=== PATIENT | male | born 2000 | race Caucasian/White ===

== ENCOUNTER 2022-04-26 14:34 | Observation (INO) | payer OTHER, SELFPAY ==
--- NOTE | ~2022-04-26 | CT_ITS ---
EXAMINATION: CT abdomen pelvis w con DATE: 04/26/2022 17:17 INDICATION: Right lower quadrant pain TECHNIQUE: Computed tomography (CT) of the abdomen and pelvis was performed with 100 cc Omnipaque 350 intravenous contrast. The dose-length product was 536.63 mGy-cm. Automated exposure control and iter ative reconstruction technique were employed. COMPARISON: None. FINDINGS: There is a thickened 12 mm enhancing appendix with mild surrounding inflammation, compatibl e with acute uncomplicated appendicitis. No evidence for perforation or abscess. No free air. Lung bases are unremarkable. No significant pleural or pericardial effusion. Heart size is normal. Th e liver, spleen, pancreas, adrenal glands and kidneys are unremarkable. Gallbladder is present. Nonob structive bowel pattern. No significant vascular abnormality. No lymphadenopathy. No acute bone or syeda int abnormality. No lytic or blastic lesions. IMPRESSION: 1. Acute uncomplicated appendicitis. Reviewed, dictated and finalized at location A. [employer] PERSON
[2022-04-26 14:54] VITALS: BP 148/85; PULSE 63; RESP 16; TEMP 36.9; O2SAT 100
--- NOTE | 2022-04-26 16:55 | ED.ABDPAIN ---
HPI - Abdominal Pain General Chief Complaint: Abdominal Pain Stated Complaint: appy R/O from UC Time Seen by Provider: 04/26/22 16:32 History of Present Illness HPI narrative: 21-year-old male presents to the emergency room for evaluation of right lower abdominal pain. Stating began last night and was accompanied with multiple episodes of vomiting. Denies diarrhea or constipation. Denies fever. Denies radiating pain. States pain is worse when rotating his torso. Related Data Home Medications Medication Instructions Recorded Confirmed No Home Medications 04/26/22 04/26/22 Allergies Allergy/AdvReac Type Severity Reaction Status Date / Time No Known Allergies Allergy Verified 04/26/22 14:57 Review of Systems Review of Systems: CONSTITUTIONAL: Denies fever, chills, or sweats. EYES: Denies visual changes, redness, or discharge. ENT: Denies rhinorrhea, congestion, sore throat, or otalgia. CARDIOVASCULAR: Denies chest pain, palpitations, or edema. RESPIRATORY: Denies cough or dyspnea. GASTROINTESTINAL: Reports right lower quadrant abdominal pain, nausea GENITOURINARY: Denies dysuria or hematuria. SKIN: Denies rash or itching. MUSCULOSKELETAL: Denies back pain, joint pain, or myalgia. NEUROLOGIC: Denies headache, numbness, dizziness, or weakness. PSYCHIATRIC: Denies anxiety or depression. Exam Narrative: GENERAL: Well-appearing, well-nourished, no physical limitations, and in no acute distress. HEAD: Normocephalic, atraumatic. EYES: Conjunctivae normal, PERRLA and EOMI. CHEST: Clear to auscultation. No respiratory distress. No wheezes rales or rhonchi. HEART: Regular rate and rhythm. No murmur heard. Normal peripheral pulses. ABDOMEN: Soft, RLQ tenderness, nondistended, normal active bowel sounds. Negative heel strike. Negative psoas and obturator signs. BACK: No CVA tenderness EXTREMITIES: Normal range of motion. No edema. No clubbing or cyanosis SKIN: Warm, dry, no rash. No noted wounds NEURO: No focal deficits. Alert and oriented x3. MAEW. CN's II-XI intact bilaterally, normal gait PSYCH: Cooperative. Normal mood and affect. Course Vital Signs Vital signs: Vital Signs Temperature 36.9 C 04/26/22 14:54 Pulse Rate 63 04/26/22 14:54 Respiratory Rate 16 04/26/22 14:54 Blood Pressure 148/85 H 04/26/22 14:54 Pulse Oximetry 100 04/26/22 14:54 Temperature 36.9 C 04/26/22 14:54 Pulse Rate 63 04/26/22 14:54 Respiratory Rate 16 04/26/22 14:54 Blood Pressure 148/85 H 04/26/22 14:54 Pulse Oximetry 100 04/26/22 14:54 MDM - Abdominal Pain Lab Data 04/26/22 17:02 04/26/22 17:04 Labs: Lab Results 04/26/22 04/26/22 04/26/22 Range/Units 16:54 17:02 17:02 WBC 8.9 (4.5-10.0) K/mm3 RBC 4.85 (4.6-6.20) M/mm3 Hgb 15.7 (14.0-18.0) g/dL Hct 44.9 (42.0-52.0) % MCV 92.6 (80-100) fl MCH 32.4 (26-34) pg MCHC 35.0 (32-36) g/dl RDW 11.9 (11.5-14.5) % Plt Count 224 (150-375) k/mm3 MPV 10.4 (7.4-10.4) fl Immature Gran % (Auto) 0.2 (0-0.5) % Neut % (Auto) 62.4 (45.5-73.1) % Lymph % (Auto) 24.2 (18.3-44.2) % Clark % (Auto) 11.1 H (2.6-8.5) % Eos % (Auto) 1.7 (0-4.4) % Baso % (Auto) 0.4 (0.2-1.2) % Lymph # (Auto) 2.15 (0.9-3.2) K/mm3 Clark # (Auto) 1.0 H (0.1-0.6) K/mm3 Eos # (Auto) 0.2 (0-0.3) K/mm3 Baso # (Auto) 0.0 (0.0-0.1) K/mm3 Abs Immat Gran (auto) 0.02 (0.00-0.031) K/mm3 Absolute Neuts (auto) 5.6 (1.3-6.7) K/mm3 Absolute Nucleated RBC 0.0 (0.0-0.012) K/mm3 Nucleated RBC % 0.0 (0.0-0.2) % Sodium 138 (137-145) mmol/L Potassium 4.0 (3.4-5.0) mmol/L Chloride 98 (98-107) mmol/L Carbon Dioxide 34 H (22-30) mmol/L Anion Gap 6 L (8-16) mmol/L BUN 8 L (9-20) mg/dL Creatinine 0.80 (0.7-1.3) mg/dL Estim Creat Clear Calc 140 ml/min Estimated GFR > 60 (59 - ) Glucose 89 (65-110) mg/dL Calcium
[2022-04-26 17:06] LABS: Estimated CRCL calculation 125 ml/min; Estimated Glomerular Filt Rate > 60
[2022-04-26 17:10] LABS: Basophils Percent Auto 0.4 % (0.2-1.2); Eosinophils Absolute Auto 0.2 K/mm3 (0-0.3); Eosinophils Percent Auto 1.7 % (0-4.4); Hematocrit 44.9 % (42.0-52.0); Hemoglobin 15.7 g/dL (14.0-18.0); Immature Granulocyte Absolute 0.02 K/mm3 (0.00-0.031); Immature Granulocyte Percent A 0.2 % (0-0.5); Lymphocytes Absolute Auto 2.15 K/mm3 (0.9-3.2); Lymphocytes Percent Auto 24.2 % (18.3-44.2); Mean Corpuscular Hemoglobin 32.4 pg (26-34); Mean Corpuscular Volume 92.6 fl (80-100); Mean Platelet Volume 10.4 fl (7.4-10.4); Monocytes Percent Auto 11.1 % (2.6-8.5); Neutrophils Absolute Auto 5.6 K/mm3 (1.3-6.7); Neutrophils Percent Auto 62.4 % (45.5-73.1); Platelet Count Result 224 k/mm3 (150-375); Red Blood Count 4.85 M/mm3 (4.6-6.20); Red Cell Distribution Width 11.9 % (11.5-14.5); White Blood Count 8.9 K/mm3 (4.5-10.0)
[2022-04-26 17:17] LABS: Appearance Urine Clear (Clear); Bilirubin Urine Negative (Negative); Blood Urine Negative (Negative); Color Urine Yellow (Yellow); Glucose Urine UA Negative (Negative); Ketones Urine Negative (Negative); Leukocyte Esterase Ur Negative LEU/UL (Negative); Nitrate Urine Negative (Negative); Protein Urine Negative (Negative); Urobilinogen Urine 0.2 mg/dL (<2.0)
[2022-04-26 17:18] LABS: Add Urine Microscopic? NO
[2022-04-26 17:20] LABS: Alanine Aminotransferase 24 U/L (6-50); Albumin Level 4.9 g/dL (3.5-5.1); Alkaline Phosphatase 73 U/L (38-126); Anion Gap 6 mmol/L (8-16); Aspartate Amino Transferase 29 U/L (17-59); Bilirubin,Total 0.8 mg/dL (0.2-1.3); Blood Urea Nitrogen 8 mg/dL (9-20); Calcium 9.1 mg/dL (8.4-10.2); Carbon Dioxide 34 mmol/L (22-30); Chloride 98 mmol/L (98-107); Estimated CRCL calculation 140 ml/min; Estimated Glomerular Filt Rate > 60; Glucose 89 mg/dL (65-110); Lipase 55 U/L (23-300); Sodium 138 mmol/L (137-145)
[2022-04-26 18:31] VITALS: BP 128/77; PULSE 68; RESP 18; O2SAT 99
[2022-04-26] MEDS: SODIUM CHLORIDE 0.9% IV 1,000 ML 125 ML IV CONT (19:05)
[2022-04-26 19:30] VITALS: BP 124/70; PULSE 70; RESP 16; TEMP 36.8; O2SAT 100
--- NOTE | 2022-04-26 19:52 | PC.NURSE ---
spoke with Dr. Pastor and states pt can eat but NPO after midnight
[2022-04-26 20:24] LABS: Influenza A QL RT-PCR Negative (Negative); Influenza B QL RT-PCR Negative (Negative); SARS-CoV-2 RNA PCR Negative
[2022-04-26 20:31] VITALS: BP 118/74; PULSE 72; RESP 16; TEMP 36.8; O2SAT 100
[2022-04-26 20:50] VITALS: BMI 26.3
[2022-04-26 21:36] VITALS: BMI 26.9
--- NOTE | 2022-04-26 21:39 | ADMGEN ---
This patient, Evangelista Singer, was admitted to [facility] Surg Room 322-01. Patient/family oriented to hospital policies and general routines including ID bracelet, bed and alarms, visiting hours, pain management, procedures, bathroom and other care routines, personal items, smoking policy, room service/diet, and visiting hours. Information on how to activate the Rapid Response Team has been discussed. Patient/Family are encouraged to report perceived risks to care and to ask questions if they do not understand what they are told or what they should do.
[2022-04-26 21:40] VITALS: BP 143/67; PULSE 63; RESP 18; TEMP 36; O2SAT 100
[2022-04-27] VITALS (7 sets, daily range): BP systolic 128–156; BP diastolic 67–95; PULSE 51–74; RESP 12–20; TEMP 36.4–36.8; O2SAT 97–100
[2022-04-27] MEDS: SODIUM CHLORIDE 0.9% IV 1,000 ML 125 ML IV CONT (04:29)
--- NOTE | 2022-04-27 07:48 | PC.NURSE ---
Patient transferred to surgery at 0735.
[2022-04-27] MEDS: LACTATED RINGERS 1,000 ML 30 ML IV CONT (07:55)
--- NOTE | 2022-04-27 07:57 | WPDANESEPPF ---
Anes - Initial Pre Proc Eval Procedure: Operation Date: 04/27/22 08:30 Proposed Procedures p Laparoscopic Appendectomy; Possible Open - Mary Pastor MD Date/Time: 04/27/22 07:57 Surgeon: Mary Pastor MD Pre Op Diagnosis: appendicitis Patient Data Age: 21 Gender: M Height: 1.83 m Weight: 90 kg Last Vital Signs Temp 36.7 C 04/27/22 07:53 Pulse 51 L 04/27/22 07:53 Resp 16 04/27/22 07:53 BP 138/74 04/27/22 07:53 Pulse Ox 100 04/27/22 07:53 O2 Del Method Room Air 04/27/22 07:53 Allergies Allergy/AdvReac Type Severity Reaction Status Date / Time No Known Allergies Allergy Verified 04/26/22 14:57 Home Medications Medication Instructions Recorded Confirmed Type No Home Medications 04/26/22 04/26/22 History Laboratory Tests 04/26/22 04/26/22 04/26/22 16:54 17:02 17:02 WBC 8.9 K/mm3 K/mm3 (4.5-10.0) RBC 4.85 M/mm3 M/mm3 (4.6-6.20) Hgb 15.7 g/dL g/dL (14.0-18.0) Hct 44.9 % % (42.0-52.0) MCV 92.6 fl fl (80-100) MCH 32.4 pg pg (26-34) MCHC 35.0 g/dl g/dl (32-36) RDW 11.9 % % (11.5-14.5) Plt Count 224 k/mm3 k/mm3 (150-375) MPV 10.4 fl fl (7.4-10.4) Immature Gran % (Auto) 0.2 % % (0-0.5) Neut % (Auto) 62.4 % % (45.5-73.1) Lymph % (Auto) 24.2 % % (18.3-44.2) Mercer % (Auto) 11.1 % H % (2.6-8.5) Eos % (Auto) 1.7 % % (0-4.4) Baso % (Auto) 0.4 % % (0.2-1.2) Lymph # (Auto) 2.15 K/mm3 K/mm3 (0.9-3.2) Mercer # (Auto) 1.0 K/mm3 H K/mm3 (0.1-0.6) Eos # (Auto) 0.2 K/mm3 K/mm3 (0-0.3) Baso # (Auto) 0.0 K/mm3 K/mm3 (0.0-0.1) Abs Immat Gran (auto) 0.02 K/mm3 K/mm3 (0.00-0.031) Absolute Neuts (auto) 5.6 K/mm3 K/mm3 (1.3-6.7) Absolute Nucleated RBC 0.0 K/mm3 K/mm3 (0.0-0.012) Nucleated RBC % 0.0 % % (0.0-0.2) Sodium 138 mmol/L mmol/L (137-145) Potassium 4.0 mmol/L mmol/L (3.4-5.0) Chloride 98 mmol/L mmol/L (98-107) Carbon Dioxide 34 mmol/L H mmol/L (22-30) Anion Gap 6 mmol/L L mmol/L (8-16) BUN 8 mg/dL L mg/dL (9-20) Creatinine 0.80 mg/dL mg/dL (0.7-1.3) Estim Creat Clear Calc 140 ml/min ml/min Estimated GFR > 60 (59 - ) Glucose 89 mg/dL mg/dL (65-110) Calcium 9.1 mg/dL mg/dL (8.4-10.2) Total Bilirubin 0.8 mg/dL mg/dL (0.2-1.3) AST 29 U/L U/L (17-59) ALT 24 U/L U/L (6-50) Alkaline Phosphatase 73 U/L U/L (38-126) Total Protein 8.0 g/dL g/dL (6.3-8.2) Albumin 4.9 g/dL g/dL (3.5-5.1) Lipase 55 U/L U/L (23-300) Urine Color Yellow (Yellow) Urine Appearance Clear (Clear) Urine pH 7.0 (5.0-9.0) Ur Specific Oh[place]man 1.010 (1.001-1.035) Urine Protein Negative mg/dL mg/dL (Negative) Urine Glucose (UA) Negative mg/dL mg/dL (Negative) Urine Ketones Negative mg/dL mg/dL (Negative) Ur Blood (Man) Negative (Negative) Urine Nitrate Negative (Negative) Urine Bilirubin Negative (Negative) Urine Urobilinogen 0.2 mg/dL mg/dL (<2.0) Leukocyte Esterase Rfl Negative SHANTEL/UL SHANTEL/UL (Negative) Influenza A (RT-PCR) Influenza B (RT-PCR) SARS-CoV-2 RNA (RT-PCR) 04/26/22 04/26/22 17:04 19:44 WBC RBC Hgb Hct MCV MCH MCHC RDW Plt Count MPV Immature Gran % (Auto) Neut % (Auto) Lymph % (Auto) Mercer % (Auto) Eos % (Auto) Baso % (Auto) Lymph # (Auto) Mercer # (Auto) Eos # (Auto)
--- NOTE | 2022-04-27 08:29 | PM.IMHP ---
H&P: HPI History of Present Illness Date/Time: 04/27/22 08:29 Chief Complaint: Acute appendicitis Narrative: The patient is a 21-year-old male presenting to the emergency department complaining of severe right lower quadrant abdominal pain. The patient reports the pain started yesterday and was more diffuse in nature initially. Patient reports the pain slowly localized to the right lower quadrant and became constant and severe. The patient reports associated nausea and vomiting, as well as poor appetite. The patient denies any previous episodes. The patient denies any fevers or chills, changes in bowel habits. Review of Systems Constitutional: Constitutional: Reports as per HPI, Reports anorexia, Denies chills, Denies fatigue, Denies fever(s), Denies lethargy, Denies malaise, Reports poor appetite, Denies weakness, Denies weight gain and Denies weight loss Eyes: Eyes: Reports no additional eye complaints ENT: Reports system reviewed and no additional complaints, except as documented Cardiovascular: Cardiovascular: Reports no additional cardiovascular complaints Respiratory: Respiratory: Reports no additional respiratory complaints Gastrointestinal: Gastrointestinal: Reports as per HPI, Reports abdominal pain, Denies bloating, Denies change in bowel habits, Denies change in stool character, Denies constipation, Reports GI cramping, Reports early satiety, Denies loose stools, Reports nausea, Reports vomiting and Denies hematemesis Genitourinary: Genitourinary: Reports no additional male genitourinary complaints Musculoskeletal: Musculoskeletal: Reports no additional musculoskeletal complaints Integumentary/Breasts: Skin/Breast: Reports system reviewed and no additional complaints, except as docu Neurologic: Reports system reviewed and no additional complaints, except as documented Psychiatric: Psychiatric: Reports no additional psychiatric complaints Endocrine: Endocrine: Reports no additional endocrine complaints Hematologic/Lymphatic: Hematologic/Lymphatic: Reports no additional hematologic/lymphatic complaints Allergic/Immunologic: Allergic/Immunologic: Reports no additional allergic/immunologic complaints [facility] Social History Social History Smoking status: Never smoker Alcohol intake: current Substance use: never Lack of Transportation: No Lack of Food: Never True Current Housing: I Have Housing Concerned About Future Housing: No Difficulty Paying Gas/Electric Bills: No Difficulty Paying for Meds: No Currently Unemployed: No Education: Associate Degree Difficulty w/ Childcare or Family Care: No Spiritual care concerns: No Comments PMH - none PSH - none FH - no CRC, IBD Meds Home Medications and Allergies Home Medications Medication Instructions Recorded Confirmed Type No Home Medications 04/26/22 04/26/22 History Allergies Allergy/AdvReac Type Severity Reaction Status Date / Time No Known Allergies Allergy Verified 04/26/22 14:57 Vital Signs Vital Signs - 24 hr 04/26/22 14:54 04/26/22 18:31 04/26/22 19:30 Temperature 36.9 C 36.8 C Pulse Rate 63 68 70 Respiratory Rate 16 18 16 Blood Pressure 148/85 H 128/77 124/70 Pulse Oximetry 100 99 100 Oxygen Delivery 04/26/22 20:31 04/26/22 21:40 04/26/22 22:31 Temperature 36.8 C 36.0 C L Pulse Rate 72 63 Respiratory Rate 16 18 Blood Pressure 118/74 143/67 H Pulse Oximetry 100 100 Oxygen Delivery Room Air 04/27/22 05:34 04/27/22 07:53 Temperature 36.8 C 36.7 C Pulse Rate 55 L 51 L Respiratory Rate 18 16 Blood Pressure 150/70 H 138/74 Pulse Oximetry 98 100 Oxygen Delivery Room Air Exam Const: General: cooperative, comfortable, no acute distress and average body habitus HENMT: Head: normal to inspection, normocephalic and atraumatic Eyes: General: appearance normal, both eyes and all related structures Neck: Neck: normal
--- NOTE | 2022-04-27 08:35 | WPDHPUPDATE1 ---
History and Physical Update Update Date/Time: 04/27/22 08:35 History and Physical has been reviewed, including an updated exam of the patient. There are NO changes in the patient's condition. Risks, benefits, and alternatives have been discussed and questions answered. Patient agrees to proceed with procedure.
[2022-04-27] MEDS: BUPIVACAINE/EPINEPHRINE 0.5% 10 ML VIAL 30 ML INFILTRATE (09:15)
[2022-04-27] MEDS: fentaNYL CITRATE INJ (*CRX) 100 MCG/2 ML VIAL 25 MCG IV PUSH ×2 (09:52→10:02)
--- NOTE | 2022-04-27 10:00 | P.OP_ITS ---
Procedure Note - Detailed Date of Procedure 04/27/22 Pre-op Diagnosis acute appendicitis Post-op Diagnosis Same Procedure Performed laparoscopic appendectomy Surgeon Mary Pastor MD Anesthesia General Indications 21 y/o M presenting to ED c acute appendicitis. Findings acute appendicitis no evidence of perforation Description of Procedure The patient was taken to the operating room and placed in the supine position. After adequate induction of general anesthesia, the patient was prepped and draped in the normal sterile fashion. A time-out was then done to verify the patient's identity, as well as the procedure being performed. I began by making a 5 mm incision in the infraumbilical region, through this a Veress needle was placed in the peritoneal cavity. CO2 gas was then insufflated and after ad equate pneumoperitoneum was achieved the Veress needle was removed. Then placed a 5 mm Optiview trocar under direct visualization into the peritoneal cavity. I then insufflated through this trocar site and the endoscope was placed into the trocar. Under direct visualization, placed 2 further 5 mm suprapubic port as well as an additional 12 mm port in the left lower abdomen. At this point ident ified the cecum, I retracted the cecum both medially and superiorly allowing me to expose the appendix. The appendix was noted to be very dilated and inflamed. The appendix was noted to be very adherent to the right lateral sidewall. I was able to bluntly dissect the appendix from these adhesions. I then was able to locate the base of the appendix with the cecum. I created a window with the [place] dissector between the appendix itself and the mesoappendix. I then transected the mesoappendix with a white vascular staple load. The Endo-LUIS was then reloaded with a blue staple load and I transected the base of the appendix. Once the specimen was completely detached, an endo-pouch was placed into the 12 mm port site and the specimen was removed through the endo-pouch. The appendiceal specimen will be sent to pathology for further review. I then copiously irrigated the right lower quadrant. Hemostasis was noted at both staple lines no other pathology was seen in this area. I then moved the camera to the suprapubic port to check our its port of entry. No iatrogenic injury or other pathology was noted in the upper abdomen. I then closed the 12 mm port site with a Murray code and 0 Vicryl suture under direct visualization. At this point, the abdomen was desufflated and all ports were removed. All port sites were closed with 4 Monocryl subcuticular suture. Dermabond was placed on all wounds. The patient tolerated the procedure well and was extubated in the operating room postop. He will be sent to the recovery room in stable condition. Estimated Blood Loss 10 Drains No Packing No Pathology Yes Complications No immediate complications Condition Stable Disposition PACU [facility] Billing Surgery - Charge Forward: Surgery Billing
[2022-04-27] MEDS: HYDROcodone/acetaminophen (*CRX) 5-325 MG TABLET 1 TAB PO (13:43)
--- NOTE | 2022-04-30 13:47 | PM.DS ---
DS: Admitting Diagnosis Discharge Date 04/27/22 Admitting Diagnosis acute appendicitis DS: Discharge Diagnosis Discharge Diagnosis (1) Appendicitis: Code(s): K37 - Unspecified appendicitis Status: Acute Assessment and Plan: status post laparoscopic appendectomy, continue routine postoperative care, home with p.o. analgesia, follow-up with me in 2 weeks DS: Summary Hospital Course Reason for hospitalization: acute appendicitis Hospital Course: The patient is a 21-year-old male presenting to the emergency department complaining of lower abdominal pain. Workup in the emergency department, including imaging, was significant for acute appendicitis. Given these findings, the patient was admitted to the surgical service. The patient was made NPO and started on IV antibiotics. Upon evaluation, the decision was made to proceed with urgent appendectomy. The patient was taken to the operating room laparoscopic appendectomy was performed, please see full operative report for details of that procedure. Postoperatively, the patient was sent back to the surgical floor. The patient was doing well postoperatively, tolerating a bland diet and up and moving without issue. The patient's pain was well controlled with p.o. analgesia. He will be sent home with p.o. analgesia and Colace, the patient is to follow up with me in 2 weeks. Status at Discharge Functional status at discharge: independent ambulation Overall status at discharge: patient is progressing back to baseline Time Spent with Patient Time attestation: Total time spent providing and/or coordinating discharge services: Exam Const: General: cooperative, comfortable and no acute distress Resp: Auscultation: clear to auscultation bilaterally Cardio: Rate: regular rate Rhythm: regular rhythm GI: Inspection: normal to inspection, distended and incision GI Palp: Yes abdominal tenderness, Yes Soft to palpation, Yes Tenderness to palpation present (GI), No Guarding due to palpation present (GI) and No Rigid due to palpation DS: Data Data Completed and Pending Completed studies during hospitalization: Pending at discharge 04/27/22 09:25 Surgical [PTH] Routine Discharge Plan Discharge Attending physician on discharge: Mary Pastor Consulting providers: Cheikh Coto ; Deangelo Rosales Discharging Clinician: Mary Pastor Anticipated Discharge Date/Time: 04/27/22 13:00 Patient Disposition: Home, Self-Care Activity: other - see discharge instructions Diet: as tolerated Wound Care Instructions: follow printed instructions Discharge Instructions: DISCHARGE INSTRUCTION SHEET FOR HERNIA, GALLBLADDER AND APPENDIX SURGERIES DR. PASTOR PATIENT TO TAKE HOME 1. May shower in 24 hours, no soaking in bath x 2weeks. 2. Call office for: Wound increasingly painful or bleeding Vomiting Fever of greater than 101 degrees 3. If no bowel movement for three days, take 1 oz. (30 ml) Milk of Magnesia or MiraLax 17g 1 to 2 times daily. 4. No heavy lifting > 10-15 pounds x 6 weeks for hernia repairs and 2 weeks for laparoscopic cholecystectomy or appendectomy. 5. No driving for 3 days or while taking narcotic pain medications. 6. Ice to surgical site for 48 hours (30 min on, then 30 min off). 7. Up walking 10-30 minutes three times per day. 8. Resume previous home medications. 9. Follow-up 10-14 days in office for wound check or as previously scheduled. ([phone]) 10. Oral pain medications prescription to be sent to pharmacy. Take Tylenol 500mg every 6 hours and Ibuprofen 600mg every 6 hours for the first 2 days, then as needed. 11. NUTRITION: Start out by drinking fluids and increase your diet as tolerated. If you experience nausea, try dry toast, crackers, and 7-UP. If nausea or vomiting persists, contact your surgeon?s office. 12. Gallbladders-Low Fat Di
== END 2022-04-27 13:50 | disposition home or self-care (01) ==
LOC: ANHED 17:52 → ANH3MEDSUR 20:09
PROVIDERS: Emergency Medicine; Admitting Provider Surgery; Emergency Provider Nurse Practitioner Family; Visit Provider Surgery
PROC: 0DTJ4ZZ Resection of Appendix, Percutaneous Endoscopic Approach (ICD-10-PCS; CPT 44970; principal; 2022-04-27 08:30)
DX: K35.30 Acute appendicitis with localized peritonitis, without perforation or gangrene (principal); R63.0 Anorexia; Z68.26 Body mass index [BMI] 26.0-26.9, adult; F10.90 Alcohol use, unspecified, uncomplicated; Z20.822 Contact with and (suspected) exposure to COVID-19
CPT/HCPCS: 44970; 74177; 80053; 81003; 83690; 85025; 87636; 88304; 99285; A9270; G0378; J1100; J1170; J2250; J2405; J2543; J2704; J2710; J3010; J7030; J7120; Q9967

== ENCOUNTER 2022-05-24 10:45 | Observation (INO) | payer OTHER, SELFPAY ==
--- NOTE | ~2022-05-24 | CT_ITS ---
EXAMINATION: CT abdomen pelvis w con DATE: 05/24/2022 17:57 INDICATION: Right lower quadrant pain. Leukocytosis. History of appendicitis. TECHNIQUE: Computed tomography (CT) of the abdomen and pelvis was performed with 100 cc Omnipaque 350 intravenous contrast. The dose-length product was 542.79 mGy-cm. Automated exposure control and iter ative reconstruction technique were employed. COMPARISON: CT dated 04/26/2022. FINDINGS: Lung bases are unremarkable. Heart size normal. No significant pleural or pericardial effus ion. The liver, spleen, pancreas, adrenal glands and left kidney are unremarkable. There is right renal at rophy. Gallbladder is present. Nonobstructive bowel gas pattern. There is moderate phlegmonous change in the right lower abdomen in the expected location of the appen monica. The cecum and terminal ileum are mildly thickened, likely reactive. The appendix is not definite ly identified. IMPRESSION: 1. Moderate phlegmonous change in the right lower abdomen, consistent with appendicitis. The appendix is thickened and enhancing. Localized perforation cannot be excluded. No definite free air is identi fied. Reviewed, dictated and finalized at location A. [employer] IMPRESSION: 1. Moderate phlegmonous change in the right lower abdomen, consistent with appe ndicitis. The appendix is thickened and enhancing. Localized perforation cannot be excluded. No definite free air is identified.
[2022-05-24 10:59] VITALS: BP 157/78; PULSE 85; RESP 16; TEMP 36.8; O2SAT 99
[2022-05-24 11:40] LABS: Basophils Percent Auto 0.3 % (0.2-1.2); Eosinophils Absolute Auto 0.1 K/mm3 (0-0.3); Hematocrit 42.8 % (42.0-52.0); Hemoglobin 14.8 g/dL (14.0-18.0); Immature Granulocyte Absolute 0.08 K/mm3 (0.00-0.031); Immature Granulocyte Percent A 0.6 % (0-0.5); Lymphocytes Absolute Auto 1.75 K/mm3 (0.9-3.2); Mean Corpuscular HGB Conc 34.6 g/dl (32-36); Mean Corpuscular Hemoglobin 31.6 pg (26-34); Mean Corpuscular Volume 91.3 fl (80-100); Mean Platelet Volume 10.4 fl (7.4-10.4); Monocytes Absolute Auto 1.4 K/mm3 (0.1-0.6); Monocytes Percent Auto 10.2 % (2.6-8.5); Neutrophils Absolute Auto 10.1 K/mm3 (1.3-6.7); Neutrophils Percent Auto 74.9 % (45.5-73.1); Platelet Count Result 228 k/mm3 (150-375); Red Blood Count 4.69 M/mm3 (4.6-6.20); Red Cell Distribution Width 11.8 % (11.5-14.5); White Blood Count 13.5 K/mm3 (4.5-10.0)
[2022-05-24 11:43] LABS: Add Urine Microscopic? NO; Appearance Urine Clear (Clear); Bilirubin Urine Negative (Negative); Blood Urine Negative (Negative); Color Urine Yellow (Yellow); Glucose Urine UA Negative (Negative); Ketones Urine Negative (Negative); Leukocyte Esterase Ur Negative LEU/UL (Negative); Nitrate Urine Negative (Negative); Protein Urine Negative (Negative); Specific Grav Ur <= 1.005 (1.001-1.035); Urobilinogen Urine 0.2 mg/dL (<2.0)
[2022-05-24 11:52] LABS: Alanine Aminotransferase 30 U/L (6-50); Albumin Level 4.7 g/dL (3.5-5.1); Alkaline Phosphatase 77 U/L (38-126); Anion Gap 7 mmol/L (8-16); Aspartate Amino Transferase 27 U/L (17-59); Bilirubin,Total 0.6 mg/dL (0.2-1.3); Blood Urea Nitrogen 6 mg/dL (9-20); Calcium 9.5 mg/dL (8.4-10.2); Carbon Dioxide 32 mmol/L (22-30); Chloride 97 mmol/L (98-107); Estimated CRCL calculation 138 ml/min; Estimated Glomerular Filt Rate > 60; Glucose 108 mg/dL (65-110); Lipase 42 U/L (23-300); Potassium 3.8 mmol/L (3.4-5.0); Sodium 136 mmol/L (137-145)
[2022-05-24 12:42] VITALS: BP 129/69; PULSE 65; RESP 16; TEMP 36.8; O2SAT 99
--- NOTE | 2022-05-24 15:53 | PC.NURSE ---
pt parent up to desk asking about wait time. it was explained to pt mother that we are unable to give out wait times. pt mother states, I'm paying to be here. I don't want to have to take him to another ER . pt mother again told that we are unable to give out wait times, that all hospitals are busy right now, and that we are sorry for the wait.
--- NOTE | 2022-05-24 17:47 | ED.ABDPAIN ---
HPI - Abdominal Pain General Chief Complaint: Abdominal Pain <BALTA Ayala Last Filed: 05/24/22 19:07> Stated Complaint: abd pain <BALTA Ayala Last Filed: 05/24/22 19:07> Time Seen by Provider: 05/24/22 17:37 <BALTA Ayala Last Filed: 05/24/22 19:07> Source: patient and family <BALTA Ayala Last Filed: 05/24/22 19:07> Mode of arrival: ambulatory <BALTA Ayala Last Filed: 05/24/22 19:07> Limitations: no limitations <BALTA Ayala Last Filed: 05/24/22 19:07> History of Present Illness HPI narrative: This is a 22 year old male that presents to the ER for RLQ abdominal pain. Ongoing over the last 3 days. Reports the pain is constant, intermittently it is more sharp/severe. Associated with fevers. Reports he was evaluated at another hospital for this and diagnosed with pneumonia. Does report he has had a mild cough. He thinks they tested him for flu and it was negative. Reports diarrhea. Denies nausea, vomiting, dysuria or hematuria. <BALTA Ayala Last Filed: 05/24/22 19:07> Related Data Home Medications: Home Medications Medication Instructions Recorded Confirmed levofloxacin 750 mg tablet 750 mg PO DAILY 05/24/22 <BALTA Ayala Last Filed: 05/24/22 19:07> Allergies/Adverse Reactions: Allergies Allergy/AdvReac Type Severity Reaction Status Date / Time No Known Allergies Allergy Verified 05/07/22 14:47 <BALTA Ayala Last Filed: 05/24/22 19:07> Review of Systems Review of Systems: CONSTITUTIONAL: Reports fever CARDIOVASCULAR: Denies chest pain RESPIRATORY: Reports cough. Denies dyspnea. GASTROINTESTINAL: Reports abdominal pain, diarrhea. Denies nausea, vomiting GENITOURINARY: Denies dysuria or hematuria. <BALTA Ayala Last Filed: 05/24/22 19:07> All systems reviewed & are unremarkable except as noted in HPI and below <Candie Toledo PA-C - Last Filed: 05/24/22 19:07> PMFSH Past Medical History Medical History: Medical History (Updated 05/24/22 @ 19:05 by Candie Toledo PA-C) No active medical problems <Candie Toledo PA-C - Last Filed: 05/24/22 19:07> Surgical History Surgical History: Surgical History (Updated 05/07/22 @ 14:49 by Vianey Sheikh) S/P appendectomy 04/27/22 <Candie Toledo PA-C - Last Filed: 05/24/22 19:07> Social History Social History: Social History Smoking status: Never smoker Alcohol intake: current Substance use: never Lack of Transportation: No Lack of Food: Never True Current Housing: I Have Housing Concerned About Future Housing: No Difficulty Paying Gas/Electric Bills: No Difficulty Paying for Meds: No Currently Unemployed: No Education: Associate Degree Difficulty w/ Childcare or Family Care: No Spiritual care concerns: No <Candie Toledo PA-C - Last Filed: 05/24/22 19:07> Exam Narrative: GENERAL: Well-appearing, well-nourished, and in no acute distress. HEAD: Normocephalic, atraumatic. EYES: EOMI. ENT: Nares clear, no rhinorrhea or epistaxis. Mucous membranes moist. Oropharynx without tonsillar hypertrophy exudate or other lesions. CHEST: Clear to auscultation. No respiratory distress. No wheezes rales or rhonchi HEART: Regular rate and rhythm. No murmur heard. Normal peripheral pulses. ABDOMEN: Soft, nondistended, normal active bowel sounds. Tender to palpation throughout the lower abdomen, without guarding. No CVA tenderness EXTREMITIES: Normal range of motion. No edema. SKIN: Warm, dry, no rash. NEURO: No focal deficits. Alert and oriented x3. PSYCH: Normal mood and affect <Candie Toledo PA-C - Last Filed: 05/24/22 19:07> Course Course Emergency Course: Patient family updated on work-up and plan of care <Candie Toledo PA-C - Last Filed: 05/24/22 19:07> GRATING MACHINE OPERATOR/PA Physician Mercedez
[2022-05-24 18:02] VITALS: BP 125/84; PULSE 81; RESP 16; TEMP 36.6; O2SAT 98
[2022-05-24 19:10] LABS: Influenza A QL RT-PCR Negative (Negative); Influenza B QL RT-PCR Negative (Negative); SARS-CoV-2 RNA PCR Negative
[2022-05-24] MEDS: MORPHINE SULFATE (*CRX) 4 MG/ML INJ IV PUSH (19:37)
[2022-05-24 21:09] VITALS: BP 114/72; PULSE 59; RESP 16; TEMP 36.9; O2SAT 98
--- NOTE | 2022-05-24 21:18 | PC.NURSE ---
2118-CALLED TO FLOOR TO GIVE REPORT. ADVISED BY HADOOP ADMINISTRATOR RECEIVING RN HAD NO QUESTIONS.
--- NOTE | 2022-05-24 22:00 | ADMGEN ---
This patient, Evangelista Singer, was admitted to Medical Room 246-01. Patient/family oriented to hospital policies and general routines including ID bracelet, bed and alarms, visiting hours, pain management, procedures, bathroom and other care routines, personal items, smoking policy, room service/diet, and visiting hours. Information on how to activate the Rapid Response Team has been discussed. Patient/Family are encouraged to report perceived risks to care and to ask questions if they do not understand what they are told or what they should do.
[2022-05-24 22:17] VITALS: BP 122/59; PULSE 67; RESP 16; TEMP 36.4; O2SAT 99
[2022-05-24] MEDS: SODIUM CHLORIDE 0.9% IV 1,000 ML 125 ML IV CONT (22:24)
[2022-05-24 22:34] VITALS: BMI 27.1
[2022-05-24] MEDS: IBUPROFEN IV 400 MG in SODIUM CHLORIDE 0.9% IV 100 ML 208 ML IVPB (23:03)
[2022-05-25 05:23] VITALS: BP 130/57; PULSE 80; RESP 16; TEMP 37.1; O2SAT 99
[2022-05-25 05:52] LABS: Basophils Percent Auto 0.3 % (0.2-1.2); Eosinophils Absolute Auto 0.2 K/mm3 (0-0.3); Eosinophils Percent Auto 1.8 % (0-4.4); Hematocrit 40.7 % (42.0-52.0); Hemoglobin 13.9 g/dL (14.0-18.0); Immature Granulocyte Absolute 0.07 K/mm3 (0.00-0.031); Immature Granulocyte Percent A 0.7 % (0-0.5); Lymphocytes Absolute Auto 1.26 K/mm3 (0.9-3.2); Lymphocytes Percent Auto 12.5 % (18.3-44.2); Mean Corpuscular HGB Conc 34.2 g/dl (32-36); Mean Corpuscular Hemoglobin 31.4 pg (26-34); Mean Corpuscular Volume 92.1 fl (80-100); Mean Platelet Volume 10.1 fl (7.4-10.4); Monocytes Absolute Auto 1.3 K/mm3 (0.1-0.6); Monocytes Percent Auto 12.7 % (2.6-8.5); Neutrophils Absolute Auto 7.3 K/mm3 (1.3-6.7); Platelet Count Result 215 k/mm3 (150-375); Red Blood Count 4.42 M/mm3 (4.6-6.20); Red Cell Distribution Width 11.6 % (11.5-14.5); White Blood Count 10.1 K/mm3 (4.5-10.0)
[2022-05-25 06:15] LABS: Alanine Aminotransferase 24 U/L (6-50); Albumin Level 4.1 g/dL (3.5-5.1); Alkaline Phosphatase 70 U/L (38-126); Anion Gap 6 mmol/L (8-16); Aspartate Amino Transferase 22 U/L (17-59); Bilirubin,Total 0.9 mg/dL (0.2-1.3); Blood Urea Nitrogen 8 mg/dL (9-20); Calcium 9.1 mg/dL (8.4-10.2); Carbon Dioxide 33 mmol/L (22-30); Chloride 101 mmol/L (98-107); Estimated CRCL calculation 124 ml/min; Estimated Glomerular Filt Rate > 60; Glucose 93 mg/dL (65-110); Potassium 4.6 mmol/L (3.4-5.0); Sodium 140 mmol/L (137-145)
[2022-05-25] MEDS: IBUPROFEN IV 400 MG in SODIUM CHLORIDE 0.9% IV 100 ML 208 ML IVPB (07:36)
[2022-05-25] MEDS: SODIUM CHLORIDE 0.9% IV 1,000 ML 125 ML IV CONT (07:36)
--- NOTE | 2022-05-25 09:06 | PM.IMHP ---
H&P: HPI History of Present Illness Date/Time: 05/25/22 09:06 Chief Complaint: RLQ pain Narrative: This is a 22 yo man who presented to the ED last night for RLQ pain and fevers. He underwent laparoscopic appendectomy by Dr. Pastor on 04/27/22. He was feeling better after that until this week. He began having a cough and congestion and went to an outside hospital ED and was found to have pneumonia. He was placed on Levaquin and the cough has been improving. His abdominal pain has been worsening and is localized to the RLQ. He had a fever 2 nights ago. His bowels have been moving but are slightly soft. He has had some nausea but no vomiting. Review of Systems Review of Systems: All systems reviewed & are unremarkable except as noted in HPI and below Constitutional: Constitutional: Reports fever(s) Eyes: Eyes: Denies change in vision ENT: Denies hearing loss, Denies neck pain and Denies sore throat Cardiovascular: Cardiovascular: Denies chest pain and Denies dyspnea Respiratory: Respiratory: Denies cough, Denies dyspnea and Denies wheezing Gastrointestinal: Gastrointestinal: Reports as per HPI Genitourinary: Genitourinary: Denies hematuria and Denies dysuria Musculoskeletal: Musculoskeletal: Denies arthralgias, Denies joint swelling and Denies neck pain Allergic/Immunologic: Allergic/Immunologic: Denies wheezing PMFSH Past Medical History Medical History No active medical problems Surgical History Surgical History S/P appendectomy 04/27/22 Family History Family History Grandparent Dialysis complication Social History Social History Smoking status: Never smoker Alcohol intake: current Drinks per week: 1 Substance use: never Lack of Transportation: No Lack of Food: Never True Current Housing: I Have Housing Concerned About Future Housing: No Difficulty Paying Gas/Electric Bills: No Difficulty Paying for Meds: No Currently Unemployed: No Education: Associate Degree Difficulty w/ Childcare or Family Care: No Spiritual care concerns: No Meds Home Medications and Allergies Home Medications Medication Instructions Recorded Confirmed Type levofloxacin 750 mg tablet 750 mg PO DAILY 05/24/22 05/24/22 History Allergies Allergy/AdvReac Type Severity Reaction Status Date / Time No Known Allergies Allergy Verified 05/24/22 21:11 Vital Signs Vital Signs - 24 hr 05/24/22 10:59 05/24/22 12:42 05/24/22 18:02 Temperature 36.8 C 36.8 C 36.6 C Pulse Rate 85 65 81 Respiratory Rate 16 16 16 Blood Pressure 157/78 H 129/69 125/84 Pulse Oximetry 99 99 98 Oxygen Delivery Room Air 05/24/22 22:52 05/24/22 21:09 05/24/22 22:17 Temperature 36.9 C 36.4 C Pulse Rate 59 L 67 Respiratory Rate 16 16 Blood Pressure 114/72 122/59 L Pulse Oximetry 98 99 Oxygen Delivery Room Air 05/25/22 05:23 Temperature 37.1 C Pulse Rate 80 Respiratory Rate 16 Blood Pressure 130/57 L Pulse Oximetry 99 Oxygen Delivery Exam Const: General: alert; No acute distress Orientation/consciousness: patient oriented x3 Limitations: no limitations HENMT: Head: normocephalic and atraumatic Ears: hearing grossly normal bilaterally Face/Nose/Sinus: Normal external nose present and Normal nares present Mouth: Yes Normal oral and palatal mucosa present and Yes moist mucous membranes Eyes: General: appearance normal, both eyes and all related structures Conjunctivae: conjunctivae normal Sclera: sclerae normal Pupils: Equal, round and reactive pupils present EOM: EOMs intact bilaterally Neck: Neck: normal visual inspection, full ROM, no lymphadenopathy, supple and no JVD Lymphatic: no lymphadenopathy noted Chest: Chest palpation & inspection: kathleen
[2022-05-25 14:00] VITALS: BP 121/70; PULSE 66; RESP 16; TEMP 36.9; O2SAT 97
[2022-05-26] MEDS: IBUPROFEN IV 400 MG in SODIUM CHLORIDE 0.9% IV 100 ML 208 ML IVPB (02:42)
[2022-05-26 05:59] LABS: Hematocrit 40.6 % (42.0-52.0); Hemoglobin 13.8 g/dL (14.0-18.0); Mean Corpuscular Hemoglobin 31.4 pg (26-34); Mean Corpuscular Volume 92.5 fl (80-100); Mean Platelet Volume 9.9 fl (7.4-10.4); Platelet Count Result 237 k/mm3 (150-375); Red Blood Count 4.39 M/mm3 (4.6-6.20); Red Cell Distribution Width 11.5 % (11.5-14.5); White Blood Count 8.5 K/mm3 (4.5-10.0)
[2022-05-26 06:21] LABS: Anion Gap 5 mmol/L (8-16); Blood Urea Nitrogen 7 mg/dL (9-20); Calcium 9.1 mg/dL (8.4-10.2); Carbon Dioxide 34 mmol/L (22-30); Chloride 102 mmol/L (98-107); Estimated CRCL calculation 138 ml/min; Estimated Glomerular Filt Rate > 60; Glucose 90 mg/dL (65-110); Potassium 4.2 mmol/L (3.4-5.0); Sodium 141 mmol/L (137-145)
[2022-05-26 06:57] VITALS: BP 132/72; PULSE 66; RESP 16; TEMP 37.1; O2SAT 98
--- NOTE | 2022-05-26 10:37 | PM.DS ---
DS: Admitting Diagnosis Discharge Date 05/26/2022 Admitting Diagnosis Intra-abdominal infection after surgical procedure DS: Discharge Diagnosis Discharge Diagnosis (1) Intra-abdominal infection after surgical procedure: Code(s): T81.40XA - Infection following a procedure, unspecified, initial encounter Status: Acute (2) Acute appendicitis: Qualifiers: Acute appendicitis type: with localized peritonitis Appendicitis gangrene presence: without gangrene Appendicitis perforation presence: without perforation Appendicitis abscess presence: without abscess Qualified Code(s): K35.30 - Acute appendicitis with localized peritonitis, without perforation or gangrene Code(s): K35.80 - Unspecified acute appendicitis Status: Acute DS: Summary Hospital Course Reason for hospitalization: Intra abdominal infection Hospital Course: This is 22-year-old man who presented to the emergency department with worsening abdominal pain and fevers. He is status post laparoscopic appendectomy for acute appendicitis on 04/27/2022. He had been doing well postoperatively was feeling better for about 3 weeks. Over the past week he has had recurrent right lower quadrant abdominal pain. He was also complaining of congestion. He had gone to the emergency department in [facility] and was suspected of having pneumonia and was placed on Levaquin. He continued to have worsening abdominal pain therefore he presented to our emergency department. CT showed infectious findings in the right lower quadrant in the area of the previous appendix. The appendix was not clearly identified but there was some concern possible stump appendicitis or residual infection. He was placed on IV Zosyn and admitted to the hospital for further treatment. His white blood count was 13.5 on admission and the day of discharge it had returned to normal. He remained afebrile throughout the hospitalization. He was kept on clear liquid diet initially, but this was slowly advanced to a low-fiber diet as tolerated. On 05/26/2022, his pain was much better and he was feeling better overall. He was then discharged on 05/26/2022. Patient will be placed on Levaquin and Flagyl for 10 days. Have patient follow-up with Dr. Pastor in office and plan for outpatient CT abdomen/pelvis in 2-3 weeks. Status at Discharge Functional status at discharge: independent ambulation Overall status at discharge: patient is progressing back to baseline Time Spent with Patient Time attestation: Total time spent providing and/or coordinating discharge services: Time spent: Less than 30 minutes Exam Const: General: comfortable and no acute distress Orientation/consciousness: patient oriented x3 Resp: Effort & Inspection: normal respiratory effort Auscultation: clear to auscultation bilaterally GI: Inspection: normal to inspection and non-distended GI Palp: Yes Soft to palpation, Yes Tenderness to palpation present (GI) (Mild right lower quadrant tenderness) and No Guarding due to palpation present (GI) Auscultation: normal bowel sounds DS: Data Data Completed and Pending Labs on day of discharge: Labs from last 24 hours 05/26/22 05/26/22 05:19 05:19 WBC 8.5 RBC 4.39 L Hgb 13.8 L Hct 40.6 L MCV 92.5 MCH 31.4 MCHC 34.0 RDW 11.5 Plt Count 237 MPV 9.9 Sodium 141 Potassium 4.2 Chloride 102 Carbon Dioxide 34 H Anion Gap 5 L BUN 7 L Creatinine 0.80 Estim Creat Clear Calc 138 Estimated GFR > 60 Glucose 90 Calcium 9.1 Preliminary micro results at discharge 05/24/22 21:44 Blood Culture - Preliminary Blood 05/24/22 21:44 Blood Culture - Preliminary Blood Imaging Radiologist's impression: ITS Impressions Abdomen/Pelvis CT 05/24/22 17:59 IMPRESSION: 1. Moderate phlegmonous change in the right lower abdomen, consistent with appendicitis. The appendix is thickened and enhancing. Localized perforation
== END 2022-05-26 13:00 | disposition home or self-care (01) ==
LOC: ANHED 19:05 → ANH2MED 20:38
PROVIDERS: Emergency Medicine; Physician Assistant; Admitting Provider Surgery; Emergency Provider Emergency Medicine; Visit Provider Surgery
DX: T81.40XA Infection following a procedure, unspecified, initial encounter (principal); R10.31 Right lower quadrant pain; R50.9 Fever, unspecified; R05.9 Cough, unspecified; R19.7 Diarrhea, unspecified; Z20.822 Contact with and (suspected) exposure to COVID-19; D72.829 Elevated white blood cell count, unspecified; F10.90 Alcohol use, unspecified, uncomplicated; Z90.49 Acquired absence of other specified parts of digestive tract; Z79.899 Other long term (current) drug therapy
CPT/HCPCS: 36415; 74177; 80048; 80053; 81003; 83690; 85025; 85027; 87040; 87636; 96361; 96365; 96366; 96367; 96375; 99285; G0378; J0131; J1741; J2270; J2543; J7030; Q9967

== ENCOUNTER → 2022-06-18 10:44 | Outpatient (CLI) | payer OTHER, SELFPAY ==
--- NOTE | ~2022-06-18 | CT_ITS ---
EXAMINATION: CT abdomen pelvis w con DATE: 06/18/2022 11:07 INDICATION: Postoperative intra-abdominal infection TECHNIQUE: Computed tomography (CT) of the abdomen and pelvis was performed with 100 mL Omnipaque-350 intravenous contrast. Automated exposure control and iterative reconstruction technique were employe d. The dose-length product was 629.39 mGy-cm. COMPARISON: 04/26/2022 and 05/24/2022 FINDINGS: Lung bases are clear. Visualized inferior heart appears normal. No pericardial or pleural effusion. C alcified lower paraesophageal lymph node along with a few small splenic calcific lesions consistent w ith old granulomatous disease. Liver, gallbladder, pancreas and bilateral adrenal glands are normal. Mild to moderate right renal atrophy with mild compensatory hypertrophy of the left kidney. Consider postoperative change of recent appendectomy. There has been interval resolution of prior inflammatory stranding related to prior acute appendicitis and subsequent appendectomy. Minimal free fluid in the pelvis situated between the distended bladder and the rectum. No abscess or free intraperitoneal gas . Bowels are otherwise unremarkable. No pathologically enlarged abdominal or pelvic lymphadenopathy. Mild spondylosis at L5-S1. IMPRESSION: 1. Resolution of prior pericecal inflammatory stranding likely related to either acute appendicitis a nd subsequent appendectomy. 2. Minimal free fluid in the posterior deep pelvis. No abscess or other acute intra-abdominal/pelvic process. 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 Resolution of prior pericecal inflammatory stranding likely related to eithe r acute appendicitis and subsequent appendectomy. 2. Minimal free fluid in the posterior deep pelvis. No abscess or other acute i ntra-abdominal/pelvic process.
== END ==
PROVIDERS: Visit Provider Surgery
DX: T81.40XA Infection following a procedure, unspecified, initial encounter (principal)
CPT/HCPCS: 74177; Q9967